=== PATIENT | female | born 1960 | race Caucasian/White ===

== ENCOUNTER → 2016-10-17 | Outpatient (CLI) | payer OTHER | LOC: BRMIMAGING 07:43 | PROVIDERS: ATTEND Family Medicine | DX: Z12.31 Encounter for screening mammogram for malignant neoplasm of breast (principal); Z80.3 Family history of malignant neoplasm of breast | CPT/HCPCS: G0202 ==

== ENCOUNTER → 2017-07-02 | Outpatient (CLI) | payer OTHER | LOC: BRMIMAGING 08:31 | PROVIDERS: ATTEND Family Medicine | DX: Z13.820 Encounter for screening for osteoporosis (principal); M81.0 Age-related osteoporosis without current pathological fracture; R79.89 Other specified abnormal findings of blood chemistry ==

== ENCOUNTER → 2018-06-09 | Emergency (ER) | payer OTHER ==
[~2018-06-09] MED LIST: FAMOTIDINE 20 MG in NS 100 ML IV ONE; NS 1,000 ML IV ONE; ONDANSETRON 4 MG/2 ML VIAL IVP ONE
--- NOTE | 2018-06-09 11:01 | EDPHY ---
H & P Time Seen by Provider: 06/09/18 10:34 HPI/ROS: HPI Nausea, lightheaded, fever. 57-year-old female by private vehicle with her . This patient reports that after eating dinner last night she did not feel well. She reports that she felt fatigued. She reports she woke up at 3:00 a.m. with a sensation of nausea and feeling lightheaded. She reports that she took an Advil at 6:00 a.m. And went back to bed for a while. She then woke up at 10:00 a.m. And still felt nauseous, got out of bed and per her recollection had a syncopal episode in her son room. She describes this as feeling lightheaded and blacking out. She then came to, was able to call her and then had another syncopal episode shortly after this. She also reports having some watery diarrhea earlier this morning. Denies any vomiting. She states that her heart rate felt fast when she woke up at 3:00 a.m.. However, she denies associated palpitations with her syncopal events. She denies any sudden-onset headache, chest pain, shortness of breath. No neck pain. No loss of sensation or weakness in her extremities. ROS: Constitutional: As above. Eyes: No discharge. No changes in vision. ENT: No sore throat. No nasal congestion or rhinorrhea. Respiratory: No cough. No shortness of breath. Cardiac: No chest pain, no palpitations. Gastrointestinal: No abdominal pain, no vomiting, as above. Genitourinary: No hematuria. No dysuria or increased frequency with urination. Musculoskeletal: No back pain. No neck pain. No myalgias or arthralgias. Skin: No rashes. Neurological: No headache currently. No focal weakness or altered sensation. Past medical history: Osteoporosis. Her primary care physician is in this building. Social history: Nonsmoker. She is here with her . No alcohol. Physical Exam: General Appearance: Alert, she is very thin and cachectic looking, she is not in distress. This patient is responding to questions appropriately and in full sentences. She appears generally well hydrated. Poorly nourished. Eyes: Pupils equal and round no pallor or injection. No lid edema, erythema or injection. ENT, Mouth: Mucous membranes are moist. The pharyngeal tissues are unremarkable. No edema or swelling. No asymmetry suggestive of abscess. No erythema or exudates. She has prominent submandibular lymph nodes bilaterally, I think this may be more due to lack of adipose tissue. No submental or cervical lymphadenopathy. Respiratory: There are no retractions, lungs are clear to auscultation with good air movement bilaterally. Cardiovascular: Regular rate and rhythm. Bradycardia. No murmur appreciated. Gastrointestinal: Abdomen is soft and nontender, no masses, bowel sounds normal. No focal tenderness at McBurney's point. No Horvath sign. Neurological: Motor sensory function is grossly intact. Cranial nerves are normal. Gait is normal. Skin: Warm and dry, no rashes. Musculoskeletal: Neck is supple and nontender. No pain on flexion of her neck. Extremities are symmetrical. All joints range without pain or impingement. Psychiatric: No agitation. No depression. Database: EKG: EKG time is 10:50 a.m.; EKG shows a narrow complex sinus bradycardia with ventricular rate of 49. Left anterior fascicular block noted.. The OH, QRS, QT intervals are within normal limits. There are no ST-T wave changes indicative of ischemic or injury pattern. No evidence of right heart strain. Interpreted by me. Imaging: Procedures: Emergency department course: Triage vital signs reviewed. She is hypotensive at 90/50 and bradycardic at 51. Vital signs are otherwise normal. She is afebrile. She is very thin. Her physical exam and presentation are consistent with anorexia. An IV will be placed. She will be started on IV normal saline with 1 L to be given over the next hour. EKG obtained and reviewed by myself. She will be given 4 mg of IV Zofran and 20 mg of IV Pepcid. Standard blood work to be evaluated and UA to be obtained. The patient's blood work was reviewed. She is mildly thrombocytopenic as well as anemic. Her electrolytes are unremarkable. Liver function panel show some mild transaminitis and hypoalbuminemia. 12:10 p.m., the patient was re-evaluated, resting comfortably at this time. Her vital signs were reviewed. I feel her blood pressures baseline at 90s over 50s. nuclear monitoring technician shows a narrow complex sinus rhythm with ventricular rate of 58. I discussed the results of the patient's blood work and urinalysis with her and her . I reviewed her EKG with them. The patient has been up and ambulatory to the bathroom without issue and has been asymptomatic since being in the emergency department. She feels better after above medication and IV fluids. I discussed admission with the 2 of them for observation. She does not want to do this. She tells me that she has a follow-up appointment with her primary care physician next week on June 18. In my professional opinion she understands the risks of declining admission and further evaluation. Return to emergency department precautions were thoroughly reviewed with her and her . All of their questions were answered. The patient was discharged home in good condition with her . Differential Diagnosis: The differential diagnosis on this patient includes but is not limited to vasovagal syncope, anorexia nervosa, malnourishment syndrome, dehydration. Subarachnoid hemorrhage, pulmonary embolism, acute coronary syndrome, arrhythmia , CVA unlikely. This represents a partial list of diagnoses considered. These considerations are based on history, physical exam, past history, reassessment and diagnostic testing. Smoking Status: Never smoked Constitutional: Initial Vital Signs Temperature (C) 36.4 C 06/09/18 10:36 Heart Rate 51 L 06/09/18 10:36 Respiratory Rate 16 06/09/18 10:36 Blood Pressure 90/50 L 06/09/18 10:36 O2 Sat (%) 96 06/09/18 10:36 O2 Delivery Mode Room Air Allergies/Adverse Reactions: amoxicillin Allergy (Severe, Verified 09/10/14 07:13) Hives clindamycin Allergy (Intermediate, Verified 06/09/18 10:35) ABD ISSUES Home Medications: Medication Instructions Recorded Alendronate Sodium 06/09/18 Ondansetron Odt [Zofran Odt 4 mg 4 mg PO Q4PRN PRN #10 tab 06/09/18 (*)] Vitamin D3 06/09/18 Medical Decision Making - Data Points Laboratory Results: 06/09/18 06/09/18 11:29 11:18 POC Sodium 137 mEq/L mEq/L (135-145) POC Potassium 3.6 mEq/L mEq/L (3.3-5.0) POC Chloride 103.0 mEq/L mEq/L (97-110) POC Total CO2 27 mEq/L mEq/L (22-31) POC BUN 12 mg/dL mg/dL (7-23) POC Creatinine 0.8 mg/dL mg/dL (0.6-1.0) POC Glucose 87 mg/dL mg/dL (70-100) POC Calcium 8.4 mg/dL L mg/dL (8.5-10.4) POC Total Bilirubin 0.9 mg/dL mg/dL (0.1-1.4) POC AST 51 IU/L H IU/L (14-46) POC ALT 55 IU/L H IU/L (9-52) POC Alk Phosphatase 52 IU/L IU/L (38-126) POC Total Protein 5.4 g/dL L g/dL (6.3-8.2) POC Albumin 3.1 g/dL L g/dL (3.5-5.0) TSH Pending Medications Given: Discontinued Medications Sodium Chloride (Ns) 1,000 mls @ 0 mls/hr IV EDNOW ONE; Wide Open PRN Reason: Protocol Stop: 06/09/18 10:55 Last Admin: 06/09/18 11:22 Dose: 1,000 mls Ondansetron HCl (Zofran) 4 mg IVP EDNOW ONE Stop: 06/09/18 10:55 Last Admin: 06/09/18 11:32 Dose: 4 mg Point of Care Test Results: CBC CBC Collection Date 06/09/18 CBC Collection Time 11:18 WBC 3.88 RBC 3.61 HGB 12.6 HCT 36 PLT 144 Neut # 3.6 Neut 92.7 LYMPH # 0.14 LYMPH 3.6 MCV 99.7 Chemistry 06/09/18 11:29 POC Sodium 137 mEq/L mEq/L (135-145) POC Potassium 3.6 mEq/L mEq/L (3.3-5.0) POC Chloride 103.0 mEq/L mEq/L (97-110) POC Total CO2 27 mEq/L mEq/L (22-31) POC BUN 12 mg/dL mg/dL (7-23) POC Creatinine 0.8 mg/dL mg/dL (0.6-1.0) POC Glucose 87 mg/dL mg/dL (70-100) POC Calcium 8.4 mg/dL L mg/dL (8.5-10.4) POC Total Bilirubin 0.9 mg/dL mg/dL (0.1-1.4) POC AST 51 IU/L H IU/L (14-46) POC ALT 55 IU/L H IU/L (9-52) POC Alk Phosphatase 52 IU/L IU/L (38-126) POC Total Protein 5.4 g/dL L g/dL (6.3-8.2) POC Albumin 3.1 g/dL L g/dL (3.5-5.0) Urine Dip Collection Date 06/09/18 Collection Time 12:50 Specific [place] (1.002-1.030) 1.015 PH (5.0-7.5) 8.5 Leukocytes (Negative) Negative Nitrites (Negative) Negative Protein (Negative) 1+ Glucose (Negative) Negative Ketones (Negative) Negative Urobilnogen (0.2-1.0 EU) 0.2 Bilirubin (Negative) Negative Blood (Negative) Negative Departure - Departure Disposition: Home, Routine, Self-Care Clinical Impression: Chronic malnutrition, Syncope, Dehydration Condition: Good Instructions: Syncope (ED), Acute Nausea and Vomiting (ED) Additional Instructions: Read and follow provided instructions. Follow-up with your primary care physician as scheduled next for re- evaluation. Take medication as prescribed as prescribed for nausea. Eat 3 regular meals a day. Drink plenty of fluids. Keep yourself well hydrated. Return to the emergency department for worsening symptoms, lightheadedness, sudden-onset severe headache, chest pain, heart palpitations, fainting, persistent fever or other serious concerns. Referrals: Renata Andrade MD [Primary Care Provider] - As per Instructions Prescriptions: Ondansetron Odt [Zofran Odt 4 mg (*)] 4 mg PO Q4PRN PRN #10 tab PRN Reason: For Nausea & Vomiting
[2018-06-09 12:17] VITALS: BP 90/58
--- NOTE | 2018-06-12 15:09 | CPEKG ---
Test Reason : OPEN Blood Pressure : / mmHG Vent. Rate : 049 BPM Atrial Rate : 049 BPM P-R Int : 114 ms QRS Dur : 083 ms QT Int : 476 ms P-R-T Axes : 066 -78 080 degrees QTc Int : 430 ms Sinus bradycardia Left anterior fascicular block Confirmed by Virginia Montalvo ([id number]) on 06/12/2018 3:09:19 PM Referred By: Virginia Montalvo Confirmed By:Virginia Montalvo
== END | disposition home or self-care (01) ==
LOC: CED 10:29
DX: R55 Syncope and collapse (principal); E46 Unspecified protein-calorie malnutrition; I95.9 Hypotension, unspecified; E86.9 Volume depletion, unspecified
CPT/HCPCS: 80053-ER; 96361-ER; 96374-ER; 99284-ER; J2405

== ENCOUNTER → 2018-10-21 | Outpatient (CLI) | payer OTHER | LOC: BRMIMAGING 10:11 → FIMAGING 10:19 ==